=== PATIENT | female | born 1985 | race Native Hawaiian/Other Pacific Islander ===

== ENCOUNTER 2017-07-22 09:49 | Emergency (ER) | payer BC ==
[2017-07-22 10:06] VITALS: BP 116/62; PULSE 82; RESP 18; TEMP 97; O2SAT 98
--- NOTE | 2017-07-22 11:11 | ED PDOC ---
HPI: Female Pain Time Seen by Provider: 07/22/17 10:46 Chief Complaint (Nursing): Female Genitourinary Chief Complaint (Provider): Vaginal bleeding History Per: Patient History/Exam Limitations: no limitations Onset/Duration Of Symptoms: Days (2) Additional Complaint(s): Pt @ 7 2/7 weeks presents with vaginal bleeding (2 pads) and abdominal cramping since yesterday, + passed clots, abdominal cramping has since resolved. Denies fever, nausea, vomiting. Abnormal Vaginal Bleeding: Yes Past Medical History Reviewed: Nursing Documentation, Vital Signs Vital Signs: Last Vital Signs Temp 97 F L 07/22/17 10:03 Pulse 82 07/22/17 10:03 Resp 18 07/22/17 10:03 BP 116/62 07/22/17 10:03 Pulse Ox 98 07/22/17 10:03 - Medical History PMH: Asthma, Hypothyroidism - Surgical History Other surgeries: Myomectomy - Family History Family History: States: Unknown Family Hx - Living Arrangements Living Arrangements: With Family - Social History Current smoker - smoking cessation education provided: No Alcohol: None - Home Medications Home Medications: Ambulatory Orders Medication Instructions Recorded Ibuprofen [Motrin] 600 mg PO Q6H PRN #20 tab 07/22/17 - Allergies Allergies/Adverse Reactions: Allergies Allergy/AdvReac Type Severity Reaction Status Date / Time No Known Allergies Allergy Verified 07/22/17 10:03 Review of Systems Constitutional: Negative for: Fever, Chills Cardiovascular: Negative for: Chest Pain Respiratory: Negative for: Cough Gastrointestinal: Negative for: Nausea, Vomiting, Abdominal Pain, Diarrhea Genitourinary Female: Positive for: Vaginal Bleeding. Negative for: Dysuria, Hematuria, Vaginal Discharge Neurological: Negative for: Headache Physical Exam - Reviewed Nursing Documentation Reviewed: Yes Vital Signs Reviewed: Yes - Physical Exam Appears: Positive for: Well, No Acute Distress Skin: Positive for: Normal Color, Warm, Dry Eye Exam: Positive for: Normal appearance, EOMI, PERRL Cardiovascular/Chest: Positive for: Regular Rate, Rhythm Respiratory: Positive for: Normal Breath Sounds Gastrointestinal/Abdominal: Positive for: Normal Exam, Bowel Sounds, Soft. Negative for: Tenderness Extremity: Positive for: Normal ROM Neurologic/Psych: Positive for: Alert, Oriented - Laboratory Results Result Diagrams: 07/22/17 11:45 07/22/17 11:45 Urine POC: Positive - ECG O2 Sat by Pulse Oximetry: 98 - Physician Consult Information Time Consulting Physican Contacted: 13:23 Physician Contacted: Lance Bolanos Outcome Of Conversation: Findings discussed, discharge home. Medical Decision Making Medical Decision Makin yo female @ 7 2/7 weeks with vaginal bleeding. - labs - pelvic ultrasound Disposition - Clinical Impression Clinical Impression: Complete - Disposition Referrals: Lance Bolanos DO [Staff Provider] - Disposition: Routine/Home Disposition Time: 13:23 Condition: STABLE Prescriptions: Ibuprofen [Motrin] 600 mg PO Q6H PRN #20 tab PRN Reason: Pain, Moderate (4-7) Instructions: Spontaneous Miscarriage (ED) Forms: [employer] (Lao)
[2017-07-22 11:55] LABS: BASO % 0.3 % (0.0-2.0); EOS # 0.2 K/uL (0.0-0.7); EOS % 3.3 % (0.0-4.0); HEMOGLOBIN 13.4 g/dL (12.0-16.0); LYMPH # 1.7 K/uL (1.0-4.3); LYMPH % 27.1 % (20.0-40.0); MEAN CELL VOLUME 89.9 fl (81.0-99.0); MEAN CORPUSCULAR HEMOGLOBIN 30.5 pg (27.0-31.0); MEAN CORPUSCULAR HGB CONC 33.9 g/dL (33.0-37.0); MEAN PLATELET VOLUME 7.6 fl (7.2-11.7); MONO # 0.6 K/uL (0.0-0.8); MONO % 9.4 % (0.0-10.0); NEUT # 3.7 K/uL (1.8-7.0); NEUT % 59.9 % (50.0-75.0); NRBC % 0.2 % (0.0-0.0); RBC 4.4 Mil/uL (3.80-5.20); RED CELL DISTRIBUTION WIDTH 12.4 % (11.5-14.5); WHITE BLOOD COUNT 6.1 K/uL (4.8-10.8)
[2017-07-22 11:57] LABS: SQUAMOUS EPITHIAL 2 /hpf (0-5); URINE BILIRUBIN NEGATIVE (NEGATIVE); URINE BLOOD LARGE (NEGATIVE); URINE CLARITY SLIGHTY-CLOUDY (Clear); URINE COLOR YELLOW (YELLOW); URINE GLUCOSE (UA) NEG (Normal); URINE LEUKOCYTE ESTERASE NEG Leu/uL (Negative); URINE NITRATE NEGATIVE (NEGATIVE); URINE PROTEIN NEGATIVE (NEGATIVE); URINE UROBILINOGEN 0.2-1.0 mg/dL (0.2-1.0)
[2017-07-22 12:10] LABS: ALB/GLOB RATIO 1.2 (1.0-2.1); ALBUMIN 4.5 g/dL (3.5-5.0); ALT/SGPT 28 U/L (9-52); AST/SGOT 26 U/L (14-36); BLOOD UREA NITROGEN 11 mg/dl (7-17); CALCIUM 9.6 mg/dL (8.4-10.2); GFR AFRICAN-AMERICAN > 60; GFR NON-AFRICAN AMERICAN > 60
[2017-07-22 12:12] LABS: PARTIAL THROMBOPLASTIN TIME 31.2 Seconds (25.6-37.1); PROTHROMBIN TIME 11.4 Seconds (9.8-13.1)
--- NOTE | 2017-07-22 12:55 | US ---
HISTORY: Vag bleeding. Prior miscarriage February 2017. Menstrual status: LMP 05/17/2017 COMPARISON: None available. TECHNIQUE: Transvaginal only. Real -time technique with 2D, duplex and color Doppler FINDINGS: UTERUS: Measures 3.5 x 4.6 x 9.3 cm. Normal in size and appearance. No fibroid or other mass lesion seen. ENDOMETRIUM: Measures 16.8 mm in diameter. Endometrial hypertrophy without focal abnormality. No gestational sac or products of conception identified. CERVIX: No cervical abnormality identified. Closed cervix 4.9 cm. RIGHT OVARY: Measures 1.5 x 2.6 x 3.1 cm. No solid mass. Normal flow. LEFT OVARY: Measures 1.4 x 2.3 x 1.2 cm. No solid mass. Normal flow. FREE FLUID: No significant free fluid noted. OTHER FINDINGS: None. IMPRESSION: Endometrial hypertrophy without focal or diffuse abnormalities. Unremarkable uterus and adnexa.
== END 2017-07-22 13:37 | disposition home or self-care (01) ==
LOC: H.ER 09:49
DX: O03.9 Complete or unspecified spontaneous abortion without complication (principal); J45.909 Unspecified asthma, uncomplicated; E03.9 Hypothyroidism, unspecified; Z3A.01 Less than 8 weeks gestation of pregnancy

== ENCOUNTER 2018-05-11 06:17 | Inpatient (IN) | payer BC ==
[2018-05-11] MEDS: Lactated Ringer's 1,000 ML IV ONE ×2 (07:15→08:33)
[2018-05-11 07:19] VITALS: BMI 26.2
[2018-05-11] MEDS ORDERED: ceFAZolin IV 1 gm in Dextrose 1 GM/50 ML BAG IVPB ONE (07:19)
[2018-05-11] MEDS ORDERED: Oxytocin 30 UNIT 30 UNITS/500 ML BAG IV ONE (07:26)
[2018-05-11] MEDS ORDERED: OXYTOCIN/0.9 % NS 20 UNIT/1,000 ML BAG IV ONE (07:29)
[2018-05-11] MEDS ORDERED: OXYTOCIN/0.9 % NS 20 UNIT/1,000 ML BAG IV SCH (07:30)
[2018-05-11 07:49] LABS: BASO % 0.3 % (0.0-2.0); EOS # 0.2 K/uL (0.0-0.7); EOS % 2.3 % (0.0-4.0); HEMOGLOBIN 12.8 g/dL (12.0-16.0); LYMPH # 1.8 K/uL (1.0-4.3); LYMPH % 21.1 % (20.0-40.0); MEAN CELL VOLUME 96.7 fl (81.0-99.0); MEAN CORPUSCULAR HEMOGLOBIN 32.3 pg (27.0-31.0); MEAN CORPUSCULAR HGB CONC 33.4 g/dL (33.0-37.0); MEAN PLATELET VOLUME 8.1 fl (7.2-11.7); MONO # 0.7 K/uL (0.0-0.8); MONO % 7.9 % (0.0-10.0); NEUT # 5.7 K/uL (1.8-7.0); NEUT % 68.4 % (50.0-75.0); NRBC % 0.1 % (0.0-0.0); RBC 3.95 Mil/uL (3.80-5.20); RED CELL DISTRIBUTION WIDTH 13.3 % (11.5-14.5); WHITE BLOOD COUNT 8.3 K/uL (4.8-10.8)
[2018-05-11] MEDS ORDERED: Phenylephrine 10 mg/ml Inj ONE (08:35)
[2018-05-11] MEDS ORDERED: ePHEDrine 50 mg/ml Inj ONE (08:35)
[2018-05-11] MEDS ORDERED: Morphine 1 mg/ml preservative-free Inj(Duramorph) ONE (08:35)
--- NOTE | 2018-05-11 08:42 | OBADHP ---
Datetime: 05/11/2018 08:37 IP Chief Complaint Other: Scheduled C/S Admit Comment, IP Provider: 32yo IUP at 39w previous mymecotmy came for primary C/S POBGYNH: No STD; spnt Ab x 2 PMH: hpothyroidism; Hx CMVIgM + PSH: wisdom teeth; laparoscopic myomectomy Allergy : seasonal PSoH: denies smoking ETOH drugs A; IUP 39w previous myomectomy Hx CMV + - follwed by ID PLAN: admitted and prepped for OR Informed consent obtianed Pelvic Type - PN: Adequate Extremities - PN: Normal Abdomen - PN: Normal Back - PN: Normal Breast - PN: Normal Lungs - PN: Normal Heart - PN: Normal Thyroid - PN: Normal Neurologic - PN: Normal HEENT - PN: Normal General - PN: Normal FHR - Baseline A Provider: 130 Membranes, Provider: Intact IP Hx Assessment: The History has been Reviewed and is Current IP Chief Complaint: Other NICHD Variability Prov Fetus A: Moderate 6-25bpm NICHD Accel Fetus A IP Provider: [id number] FHR Category Provider Fetus A: Category I NICHD Decel Fetus A IP Provider: None Genitourinary Exam: Normal DTRs - PN: Normal EGA AdmitDate IP: 39.1 IP Adm Impression: Term, intrauterine ; No Active Labor; Intact Membranes IP Admit Plan: Admit to unit; Initiate Section protocol
[2018-05-11] MEDS ORDERED: DiphenhydrAMINE 50 mg/ml Inj IVP PRN ×2 (09:37→19:56)
[2018-05-11] MEDS ORDERED: Oxycodone/Acetaminophen 5/325 mg Tab PO PRN ×2 (10:02→19:56)
[2018-05-11] MEDS: Lactated Ringer's 1,000 ML IV SCH (20:41)
[2018-05-11] MEDS: OXYTOCIN/0.9 % NS 20 UNIT/1,000 ML BAG IV SCH (20:42)
[2018-05-12] MEDS: OXYTOCIN/0.9 % NS 20 UNIT/1,000 ML BAG IV SCH (06:02)
[2018-05-12] MEDS: Lactated Ringer's 1,000 ML IV SCH (06:02)
[2018-05-12] MEDS: Levothyroxine 112 MCG TAB PO SCH (06:21)
[2018-05-12 06:28] LABS: HEMOGLOBIN 10.3 g/dL (12.0-16.0); MEAN CELL VOLUME 99.2 fl (81.0-99.0); MEAN CORPUSCULAR HEMOGLOBIN 32.9 pg (27.0-31.0); MEAN CORPUSCULAR HGB CONC 33.2 g/dL (33.0-37.0); RBC 3.13 Mil/uL (3.80-5.20); RED CELL DISTRIBUTION WIDTH 13.4 % (11.5-14.5); WHITE BLOOD COUNT 12.8 K/uL (4.8-10.8)
[2018-05-12] MEDS ORDERED: Levothyroxine 112 MCG TAB PO SCH (06:30)
[2018-05-12] MEDS ORDERED: Pneumococcal 23-Valent Vaccine IM ONE (07:45)
[2018-05-12] MEDS: Multivitamin With Minerals Tab PO SCH (08:42)
[2018-05-12] MEDS ORDERED: Multivitamin With Minerals Tab PO SCH (09:00)
--- NOTE | 2018-05-12 09:15 | OP ---
PROCEDURE DATE: 05/11/2018 PREOPERATIVE DIAGNOSES: Intrauterine at 39 weeks' gestation, previous myomectomy. POSTOPERATIVE DIAGNOSES: Intrauterine at 39 weeks' gestation, previous myomectomy, and fibroid uterus. PROCEDURE: Primary low transverse section via Pfannenstiel incision. SURGEON: Lance Bolanos DO SOFTWARE DEVELOPMENT MANAGER: David Sol MD (Dr. David Sol is a board certified MARKETING SALES SUPERVISOR physician who was available to assist on this case. His presence was vital and necessary for the procedure. No surgical assistants were available. He was present from the time of incision to delivery of the infant to the closure of the skin). ANESTHESIOLOGIST: Dr. Richards ANESTHESIA: Spinal. OPERATIVE FINDINGS: Live female , delivered from cephalic presentation. Delayed cord clamping was done. scores are 9 and 9 given at one and five minutes respectively. Clear amniotic fluid noted. Placenta was delivered and intact manually. Ovaries and tubes appeared to be within normal limits grossly. A small fibroid was noted in the lower uterine aspect of the uterus. She remained hemodynamically stable throughout the procedure. All equipments, sponges and needles accounted for. ESTIMATED BLOOD LOSS: 800 mL. DESCRIPTION OF PROCEDURE: The patient was brought to the operating room after successful spinal anesthesia by Dr. Richards. She was placed in the supine position. Compression boots were placed on both lower extremities. A catheter was placed into the urethra under sterile technique and noted to be draining clear urine. She was then draped and prepped in the usual sterile manner. Once adequate anesthesia was obtained, Pfannenstiel incision was made. This was done through the previous surgical midline scar from her operative laparoscopy. This was done using a scalpel. The incision was then taken down to the underlying fascia using electrocautery. The fascia was nicked in the midline and extended bilaterally using electrocautery. The inferior aspect of the fascia was grasped using two Kathy clamps, tented up, and the rectus muscle was both bluntly and sharply dissected using electrocautery. The same was done with the superior aspect of the fascia. In the midline superiorly, the rectus muscle was grasped using two Allis clamps, tented up and careful dissection was performed in the midline to identify the peritoneum. This was done using scalpel first and then upon identifying the peritoneum, this was tented up two Shirley clamps. This was then incised using Metzenbaum scissors, and then the incision was then extended superiorly and inferiorly with direct visualization of the bladder and intestines. Two wet lap pads were placed in the paracolic gutters. Incision was made on the peritoneum on the uterus to create a bladder flap. This was incised using Metzenbaum scissors and then extended bilaterally using Metzenbaum scissors. A bladder flap was created digitally. A bladder blade was then inserted behind the bladder flap. A transverse incision was carefully made using a scalpel. Upon entering the uterus, the incision was then extended bilaterally digitally. Rupture of membranes was performed using forceps with teeth. Clear amniotic fluid was noted. The 's head was delivered as atraumatically as possible. When we were able to do the delivery with gentle , there was . The was crying spontaneously, with bulb suction. Clamping was delayed and cord was then clamped and cut. The was handed to semiconductor processing group leader in attendance. Cord bloods were obtained. Placenta was then delivered intact manually. The uterus was then exteriorized, cleared of debris and clots. Good contracture of the uterus was noted. Ovaries and tubes appeared to be within normal limits. A 0 Vicryl suture was used to close the first layer of the uterus in interlocking fashion. Second layer of the uterus was closed using 0 Vicryl suture imbricating the first layer. Good hemostasis was assured. Small tiny fibroid was noted in the right lower uterine aspect above the uterine incision. Uterus was then placed back into the peritoneal cavity. Copious irritation was performed in the posterior cul-de-sac prior to placing the uterus back into the peritoneal cavity. All equipments were removed and accounted for. Incision lines were reinspected and noted to have good hemostasis. She complained of right quadrant pain earlier. This was inspected and no adhesions were noted in this area. Everything appeared to be clear. Peritoneum was then approximated using 0 Vicryl suture. Fascial layer was then approximated using 0 Vicryl suture in an interlocking fashion. Irrigation was performed. Subcuticular layer was noted to have good hemostasis, and this was approximated using 2-0 plain suture. A 3-0 Vicryl suture was used to reapproximate the skin. Dermabond, Steri-Strips and pressure bandage were applied. She was transferred to the recovery room in stable condition. All equipments, sponges, and needles were accounted for. Lance Bolanos DO
--- NOTE | 2018-05-12 11:54 | OBPPN ---
Datetime: 05/12/2018 11:53 PP Pain Prov: Within normal limits PP Nausea Prov: Denies PP Flatus Prov: Yes PP Breasts Prov: Normal PP Heart Prov: Normal PP Lungs Prov: Normal PP Abdomen/Uterus Prov: Normal PP Lochia Prov: Normal PP Vulva/Perineum Prov: Normal PP CVA Tenderness Prov: Normal PP Extremities Prov: Normal PP Comments Phys Exam Prov: Fundus firm under umbilicus Incision clean/dry/intact PP Impression Prov: Normal progression PP Plan Prov: Continue present management PP Progress Note Prov: patient denies CP, no SOB, no N/V, tolerating PO diet, ambulating/voiding wel l, mild lochia, abdominal pain tolerable with meds, no flatus A/P POD #1 1. continue routine orders 2. Percocet/Motrin prn pain 3. Encourage ambulation/ IP PP Procedures: None Vital Signs Provider PP: Reviewed; Within Normal Limits
[2018-05-13] MEDS: Levothyroxine 112 MCG TAB PO SCH (06:16)
[2018-05-13] MEDS ORDERED: Bisacodyl 5mg EC Tab PO PRN ×2 (08:02)
[2018-05-13] MEDS: Multivitamin With Minerals Tab PO SCH (09:00)
[2018-05-13] MEDS ORDERED: Lansinoh for Breast Feeding Mothers TP ONE (09:06)
--- NOTE | 2018-05-13 11:46 | OBADHP ---
Datetime: 05/11/2018 08:37 EGA AdmitDate IP: 39.1
--- NOTE | 2018-05-13 11:46 | OBDS ---
DELIVERY PERSONNEL Delivery Doctor: Cameron Bolanos DO Scrub Nurse: Belen Wilson Neckties Painter: Shahana Castillo RN Anesthesiologist: Zahira Richards MD MATERNAL INFORMATION Delivery Anesthesia: Spinal Medications in Delivery: Pitocin 30 units Estimated Blood Loss (ml): 800 Placenta Cultured: No Maternal Complications: None Provider Comments: Pre Op Dx: IUP at 39w/previous myomectomy Post Op Dx same; fibroid uterus Procedure: Primary LTCS via Pfannensteil incision Surgeon Dr Bolanos Asst Dr Sol Anesth: Dr Richards Anesth: Spinal Findings: -live [facility]/delayed cord clamp -APGAR9,9 -clear AF -placenta delivered intact manually -ovaries and tubes WNL; small fibroid right lower segment -She remained stable -all equipment sponges and needles accounted for -EBL 800cc LABOR SUMMARY EDC: 05/17/2018 00:00 No. Babies in Womb: 1 Attempted: No Labor Anesthesia: None LABOR INFORMATION Reason for Induction: Not Applicable Oxytocin: N/A Group B Beta Strep: Done, Result Unknown Steroids Given: None Reason Steroids Not Administered: Not Applicable MEMBRANES Membranes Rupture Method: Artificial Rupture of Membranes: 05/11/2018 09:20 Length of Rupture (hrs): 0.00 Amniotic Fluid Color: Clear Amniotic Fluid Amount: Moderate Amniotic Fluid Odor: Normal STAGES OF LABOR Stage 3 hrs: 0 Stage 3 min: 1 CSECTION DELIVERY Primary Indication: Previous Myomectomy Secondary Indication: Other Other Secondary Indication: fibroids CSection Urgency: Elective CSection Incidence: Primary Labor: No Labor Elective: Elective CSection Incision: Lower Uterine Transverse Uterine Closure: Double-layer closure BABY A INFORMATION Infant Delivery Date/Time: 05/11/2018 09:20 Method of Delivery: Born in Route : No : N/A Forceps: N/A Vacuum Extraction: N/A Shoulder Dystocia : No SHOULDER DYSTOCIA BABY A Delivery Date/Time: 05/11/2018 09:20 PRESENTATION/POSITION BABY A Presentation: Cephalic Cephalic Presentation: Vertex Breech Presentation: N/A PLACENTA INFORMATION BABY A Placenta Delivery Time : 05/11/2018 09:21 Placenta Method of Delivery: Spontaneous Placenta Status: Delivered SCORES BABY A Heart Rate 1 min: >100 bpm Resp Effort 1 min: Good Cry Reflex Irritability 1 min: Cough or Sneeze or Pulls Away Muscle Tone 1 min: Active Motion Color 1 min: Body [place], Extremities Blue Resuscitation Effort 1 min: Tactile Stimulation SCORE 1 MIN: 9 Heart Rate 5 min: >100 bpm Resp Effort 5 min: Good Cry Reflex Irritability 5 min: Cough or Sneeze or Pulls Away Muscle Tone 5 min: Active Motion Color 5 min: Body [place], Extremities Blue Resuscitation Effort 5 min: Tactile Stimulation SCORE 5 MIN: 9 INFORMATION BABY A Gestational Age at Delivery: 39.0 Gestational Status: Term Outcome : Liveborn Infant Condition : Stable Infant Sex: Female IDENTIFICATION/MEDS BABY A ID Band Number: [id number] ID Band Location: Left Leg; Left Arm WEIGHT/LENGTH BABY A Birthweight (gms): 3200 Infant Weight (lb): 7 Infant Weight (oz): 1 CORD INFORMATION BABY A No. Cord Vessels: 3 Nuchal Cord : N/A Cord Blood Taken: N/A Suction: None ASSESSMENT BABY A Complications: None Physical Findings at Delivery: Within Normal Limits Respirations: Appears Normal Director Of Gift Planning/ALS Called : No Infant Care By: Lucia Bourne Transferred To: Remains with Mother
--- NOTE | 2018-05-13 11:47 | OBDS ---
DELIVERY PERSONNEL Delivery Doctor: Cameron Bolanos DO Scrub Nurse: Belen Wilson [employer]: Shahana Castillo RN Anesthesiologist: Zahira Richards MD MATERNAL INFORMATION Delivery Anesthesia: Spinal Medications in Delivery: Pitocin 30 units Estimated Blood Loss (ml): 800 Placenta Cultured: No Maternal Complications: None Provider Comments: Pre Op Dx: IUP at 39w/previous myomectomy Post Op Dx same; fibroid uterus Procedure: Primary LTCS via Pfannensteil incision Surgeon Dr Bolanos Asst Dr Sol Anesth: Dr Richards Anesth: Spinal Findings: -[place] [facility] [place]/delayed cord clamp -APGAR9,9 -clear AF -placenta delivered intact manually -ovaries and tubes WNL; small fibroid right lower segment -She remained stable -all equipment sponges and needles accounted for -EBL 800cc LABOR SUMMARY EDC: 05/17/2018 00:00 No. Babies in Womb: 1 Attempted: No Labor Anesthesia: None LABOR INFORMATION Reason for Induction: Not Applicable Oxytocin: N/A Group B Beta Strep: Done, Result Unknown Steroids Given: None Reason Steroids Not Administered: Not Applicable MEMBRANES Membranes Rupture Method: Artificial Rupture of Membranes: 05/11/2018 09:20 Length of Rupture (hrs): 0.00 Amniotic Fluid Color: Clear Amniotic Fluid Amount: Moderate Amniotic Fluid Odor: Normal STAGES OF LABOR Stage 3 hrs: 0 Stage 3 min: 1 CSECTION DELIVERY Primary Indication: Previous Myomectomy Secondary Indication: Other Other Secondary Indication: fibroids CSection Urgency: Elective CSection Incidence: Primary Labor: No Labor Elective: Elective CSection Incision: Lower Uterine Transverse Uterine Closure: Double-layer closure BABY A INFORMATION Infant Delivery Date/Time: 05/11/2018 09:20 Method of Delivery: Born in Route : No : N/A Forceps: N/A Vacuum Extraction: N/A Shoulder Dystocia : No SHOULDER DYSTOCIA BABY A Delivery Date/Time: 05/11/2018 09:20 PRESENTATION/POSITION BABY A Presentation: Cephalic Cephalic Presentation: Vertex Breech Presentation: N/A PLACENTA INFORMATION BABY A Placenta Delivery Time : 05/11/2018 09:21 Placenta Method of Delivery: Spontaneous Placenta Status: Delivered SCORES BABY A Heart Rate 1 min: >100 bpm Resp Effort 1 min: Good Cry Reflex Irritability 1 min: Cough or Sneeze or Pulls Away Muscle Tone 1 min: Active Motion Color 1 min: Body [place], Extremities Blue Resuscitation Effort 1 min: Tactile Stimulation SCORE 1 MIN: 9 Heart Rate 5 min: >100 bpm Resp Effort 5 min: Good Cry Reflex Irritability 5 min: Cough or Sneeze or Pulls Away Muscle Tone 5 min: Active Motion Color 5 min: Body [place], Extremities Blue Resuscitation Effort 5 min: Tactile Stimulation SCORE 5 MIN: 9 INFORMATION BABY A Gestational Age at Delivery: 39.0 Gestational Status: Term Outcome : Liveborn Infant Condition : Stable Infant Sex: Female IDENTIFICATION/MEDS BABY A ID Band Number: [id number] ID Band Location: Left Leg; Left Arm WEIGHT/LENGTH BABY A Birthweight (gms): 3200 Infant Weight (lb): 7 Infant Weight (oz): 1 CORD INFORMATION BABY A No. Cord Vessels: 3 Nuchal Cord : N/A Cord Blood Taken: N/A Suction: None ASSESSMENT BABY A Complications: None Physical Findings at Delivery: Within Normal Limits Respirations: Appears Normal Academic Support Assistant/ALS Called : No Infant Care By: Lucia Bourne Transferred To: Remains with Mother
--- NOTE | 2018-05-13 11:48 | OBPPN ---
Datetime: 05/13/2018 11:46 PP Pain Prov: Within normal limits PP Nausea Prov: Denies PP Flatus Prov: Yes PP BM Prov: No PP Breasts Prov: Normal PP Heart Prov: Normal PP Lungs Prov: Normal PP Abdomen/Uterus Prov: Normal PP Lochia Prov: Normal PP Vulva/Perineum Prov: Normal PP CVA Tenderness Prov: Normal PP Extremities Prov: Normal PP C/S Incision Prov: Normal PP Progress Prov: Normal PP Impression Prov: Normal progression PP Plan Prov: Continue present management PP Progress Note Prov: pod 2 She feels better than yesterday. Eating well and ambulating A: S/P C/S day 2 PLAN: cont post op care Vital Signs Provider PP: Reviewed; Within Normal Limits
[2018-05-14] MEDS: Levothyroxine 112 MCG TAB PO SCH (06:16)
[2018-05-14] MEDS: Multivitamin With Minerals Tab PO SCH (08:17)
--- NOTE | 2018-05-14 10:08 | OBDCSUM ---
Datetime: 05/14/2018 10:06 Discharged to, Provider: Home Follow up at, Provider: angelic Thayer Instr Activity: Normal activity Disch Instr Diet: Regular Discharge Instructions, Provider: Routine instructions given Discharge Diagnosis, Provider: Term Delivered Follow up in weeks, Provider: 1 week Disch Referrals: None Contraception discussed, Prov: Yes Disch Activity Restrictions: No exercising; No sexual activity; Nothing in vagina - Beebe, calvin jose antonio corbin Discharge Comment, Provider: Patient cleared for discharge Contraception after Delivery: Undecided
--- NOTE | 2018-05-14 10:08 | OBPPN ---
Datetime: 05/14/2018 10:05 PP Pain Prov: Within normal limits PP Nausea Prov: Denies PP Flatus Prov: Yes PP Breasts Prov: Normal PP Heart Prov: Not Done PP Lungs Prov: Not Done PP Abdomen/Uterus Prov: Normal PP Lochia Prov: Not Done PP Vulva/Perineum Prov: Not Done PP CVA Tenderness Prov: Normal PP Extremities Prov: Normal PP C/S Incision Prov: Normal PP Impression Prov: Normal progression PP Plan Prov: Discharge PP Progress Note Prov: Patient doing well ambulating tolerating diet pain well-controlled Patient cleared for discharge Patient to follow up with Dr. Bolanos in 1 week No heavy lifting Vital Signs Provider PP: Reviewed
[2018-05-15 01:47] VITALS: BP 104/79; PULSE 73; RESP 19; TEMP 97.8; O2SAT 99
== END 2018-05-14 12:52 | disposition home or self-care (01) | DRG 788 ==
LOC: H.EROB2 06:17 → H.L&D 07:28 → H.OB/GYN 14:23
PROVIDERS: ADMIT Obstetrics & Gynecology; ATTEND Obstetrics & Gynecology
PROC: 10D00Z1 Extraction of Products of Conception, Low, Open Approach (ICD-10-PCS; principal; 2018-05-11)
PROC: 4A1HXCZ Monitoring of Products of Conception, Cardiac Rate, External Approach (ICD-10-PCS; 2018-05-11)
PROC: 3E0234Z Introduction of Serum, Toxoid and Vaccine into Muscle, Percutaneous Approach (ICD-10-PCS; 2018-05-12)
DX: O34.13 Maternal care for benign tumor of corpus uteri, third trimester (principal); D25.9 Leiomyoma of uterus, unspecified; Z37.0 Single live birth; Z3A.39 39 weeks gestation of pregnancy; Z98.891 History of uterine scar from previous surgery; Z23 Encounter for immunization